=== PATIENT | female | born 1965 | race Caucasian/White ===

== ENCOUNTER 2017-02-05 00:04 | Emergency (ER) | payer OTHER ==
[~2017-02-05] VITALS: Ht 157.5 cm; Wt 51.4 kg
[2017-02-05] MEDS ORDERED: CEFDINIR300 MG PO (01:12)
[2017-02-05 01:19] VITALS: BP 162/96
== END 2017-02-05 01:27 | disposition home or self-care (01) ==
LOC: EME 00:04 → EXP 00:04
DX: H66.93 Otitis media, unspecified, bilateral (principal); H72.92 Unspecified perforation of tympanic membrane, left ear; F17.200 Nicotine dependence, unspecified, uncomplicated
CPT/HCPCS: 99281; 99284